=== PATIENT | male | born 1995 | race Caucasian/White ===

== ENCOUNTER 2024-02-13 07:27 | Emergency (ER) | payer OTHER ==
[~2024-02-13] VITALS: Ht 167.6 cm; Wt 87.0 kg
[2024-02-13 07:31] VITALS: O2SAT 97
[2024-02-13] MEDS: OXYCODONE HCL/ACETAMINOPHEN 5/325MG TABLET PO ONE (07:58)
[2024-02-13] MEDS ORDERED: IBUP-2028 PO (10:00)
[2024-02-13] MEDS ORDERED: T3 PO (10:00)
[2024-02-13 10:22] LABS: BASOPHILS % 0.6 % (0.0-2.0); EOSINOPHILS % 1.4 % (0.0-5.0); HEMOGLOBIN. 15.5 g/dL (14.0-18.0); LYMPHOCYTES % 37.5 % (20.0-50.0); MEAN CORPUSCULAR HEMOGLOBIN 27.7 pg (28.0-32.0); MEAN CORPUSCULAR HGB CONC 32.9 g/dL (31.0-37.0); MEAN CORPUSCULAR VOLUME 84.1 fL (80.0-94.0); MEAN PLATELET VOLUME 9.4 fl (7.4-10.4); MONOCYTES % 6.8 % (2.0-8.0); NEUTROPHILS % 53.7 % (40.0-76.0); PLATELET 231 x1000/uL (130-400); RED BLOOD CELL COUNT 5.59 mill/uL (4.7-6.1); RED CELL DISTRIBUTION WIDTH 14.1 % (11.6-14.6); WHITE BLOOD COUNT 10.8 x1000/uL (4.5-11.0)
[2024-02-13 10:29] LABS: CHLORIDE 107 mEq/L (98-107); POTASSIUM 3.9 mEq/L (3.5-5.1); SODIUM 137 mEq/L (136-145)
[2024-02-13 10:30] LABS: CARBON DIOXIDE 26 mEq/L (21-32)
[2024-02-13 10:31] LABS: CALCIUM 9.4 mg/dL (8.7-10.4)
[2024-02-13 10:35] LABS: CREATININE 0.8 mg/dL (0.6-1.3)
[2024-02-13 10:36] LABS: GLUCOSE 88 mg/dL (70-105); UREA NITROGEN BLOOD 14 mg/dL (9-23)
[2024-02-13] MEDS: MORPHINE SULFATE 4 MG/ML INJ (FOR IV/IM USE) IV STA (10:53)
[2024-02-13] MEDS: MORPHINE SULFATE 4 MG/ML INJ (FOR IV/IM USE) IV ONE (14:09)
[2024-02-13] MEDS: KETOROLAC 30MG/ML VIAL IV ONE (14:10)
[2024-02-13 14:38] VITALS: BP 118/76; PULSE 93; RESP 20; TEMP 36.66960; O2SAT 95
== END 2024-02-13 14:47 | disposition short-term general hospital (02) ==
LOC: ER 07:27 → EDBEDREQTM 13:28 → EDBEDREQ 13:29 → ER 14:47
DX: M54.9 Dorsalgia, unspecified (principal)
CPT/HCPCS: 80048; 85025; 36415; 71101; 96374; 96375; 96376; 99285; J1885; J2270; Z7610 ×3